=== PATIENT | male | born 1955 | race Caucasian/White ===

== ENCOUNTER 2020-10-12 14:17 | Emergency (ER) | payer MEDICARE ==
[2020-10-12 15:11] VITALS: BP 142/87; PULSE 87; RESP 18; TEMP 98
[2020-10-12] MEDS ORDERED: DIPH,PERTUS(ACELL)TETVAC-LF 0.5 ML VIAL IM ONE (15:20)
[2020-10-12] MEDS ORDERED: ceFAZolin 1,000 MG VIAL (IM USE) IM STA (15:20)
--- NOTE | 2020-10-12 15:57 | XR ---
EXAMINATION TYPE: XR finger LT DATE OF EXAM: 10/12/2020 COMPARISON: NONE HISTORY: Laceration to third digit from hedge tremors TECHNIQUE: 3 views left finger FINDINGS: There is a highly comminuted fracture of the distal phalanx of the left third finger with associated soft tissue laceration and bandage material. IMPRESSION: There is a highly comminuted fracture of the distal phalanx of the left third finger with associated soft tissue laceration and bandage material.
[2020-10-12] MEDS ORDERED: BACITRACIN OINT 1 EACH PACKET TOPICAL STA (16:24)
--- NOTE | 2020-10-12 16:32 | ED ---
General Adult HPI - General Chief complaint: Wound/Laceration Stated complaint: L Finger Lac Time Seen by Provider: 10/12/20 15:19 Source: patient Mode of arrival: ambulatory Limitations: no limitations - History of Present Illness Initial comments: 65-year-old male presents to the emergency room for a chief complaint of laceration. Patient was cutting bushes with denise when he cut his left middle finger with them. Patient denies any other injuries. States he is not up-to-date on tetanus. He is able to do so. Denies loss of sensation.Patient h as no other complaints at this time including shortness of breath, chest pain, abdominal pain, nausea or vomiting, headache, or visual changes. - Related Data Previous Rx's Medication Instructions Recorded Cephalexin [Keflex] 500 mg PO Q6HR 7 Days #28 cap 10/12/20 Allergies Allergy/AdvReac Type Severity Reaction Status Date / Time Penicillins AdvReac Rash/Hives Verified 10/12/20 14:35 Review of Systems ROS Statement: Those systems with pertinent positive or pertinent negative responses have been documented in the HPI. ROS Other: All systems not noted in ROS Statement are negative. Past Medical History Past Medical History: No Reported History History of Any Multi-Drug Resistant Organisms: None Reported Past Surgical History: Orthopedic Surgery Past Psychological History: No Psychological Hx Reported Smoking Status: Never smoker Past Alcohol Use History: None Reported Past Drug Use History: None Reported General Exam Limitations: no limitations General appearance: alert, in no apparent distress Head exam: Present: atraumatic, normocephalic, normal inspection Eye exam: Present: normal appearance, PERRL, EOMI ENT exam: Present: normal exam, mucous membranes moist Neck exam: Present: normal inspection, full ROM. Absent: tenderness Respiratory exam: Present: normal lung sounds bilaterally. Absent: respiratory distress, wheezes Cardiovascular Exam: Present: regular rate, normal rhythm, normal heart sounds Extremities exam: Present: full ROM (Full range of motion of the left third digit including the DIP joint.), normal capillary refill (Capillary refill less than 2 seconds extremity be pulse 2+ in the left third digit. However patient does have a small flap of skin on the finger pad with sluggish refill.), other (2 cm lac of the radial aspect L 3rd digit distal phalanx. minor nail bed invo lvement about 0.5 cm) Course Vital Signs 10/12/20 14:35 Temperature 98 F Pulse Rate 87 Respiratory 18 Rate Blood Pressure 142/87 O2 Sat by Pulse 97 Oximetry Procedures - Laceration Laceration #1 Consent Obtained: verbal consent Indication: laceration Site: hand Size (cm): 2 Description: linear Anesthetic Used: lidocaine 1% Anesthesia Technique: nerve block Amount (mls): 4 Pre-repair: wound explored, irrigated extensively (with saline pressure irri gation) Type of Sutures: nylon Size of Sutures: 5-0 Number of Sutures: 7 Technique: simple, interrupted Patient Tolerated Procedure: well, no complications Medical Decision Making - Medical Decision Making X-ray revealed a highly comminuted fracture of the distal phalanx of the left third digit with associated soft tissue laceration. Patient was given IM Ancef and updated on tetanus. Digital block was performed. Laceration was irrigated. Laceration was repaired. Wound is well approximated. Wound was cleaned and dressed. Splint was applied. She'll be started on oral antibiotics. He will follow up with orthopedics. He will return here for any worsening symptoms. He is aware he needs the stitches out in 10 days. Disposition Clinical Impression: Open fracture of finger, Laceration Disposition: HOME SELF-CARE Condition: Good Instructions (If sedation given, give patient instructions): Laceration (ED), Finger Fracture (ED) Additional Instructions: Please clean the area with gentle soap and water once daily. Do not put the hand in dirty water such as a dish water. Take antibiotic as directed. Apply antibiotic ointment daily. Wear splint. Follow-up with orthopedics for calling today or tomorrow for the earliest appointment. Return in 10 days for suture removal. Prescriptions: Cephalexin [Keflex] 500 mg PO Q6HR 7 Days #28 cap Is patient prescribed a controlled substance at d/c from ED?: No Referrals: Tony Lovell MD [STAFF PHYSICIAN] - 1-2 days Michael Rodríguez DO [Doctor of Osteopathic Medicine] - 1-2 days Time of Disposition: 16:31
== END 2020-10-12 17:04 | disposition home or self-care (01) ==
LOC: EC 14:17
DX: S62.633B Displaced fracture of distal phalanx of left middle finger, initial encounter for open fracture (principal); Z23 Encounter for immunization; Z88.0 Allergy status to penicillin; W26.8XXA Contact with other sharp object(s), not elsewhere classified, initial encounter
CPT/HCPCS: 73140; 90715; 12001; 90471; 96372; 99283; J0690